=== PATIENT | male | born 1955 | race Hispanic/Latino ===

== ENCOUNTER 2016-11-15 20:59 | Inpatient (IN) | payer MEDICAID ==
--- NOTE | 2016-11-15 21:21 | C.PDOC ---
History Of Present Illness Patient is a 61 year old male transferred from [facility] for inpatient psychiatric admission. Patient is bipolar and noncompliant with medications. Patient has no physical complaints at this time. Time Seen by Provider: 11/15/16 21:20 Chief Complaint (Nursing): Medical Clearance History Per: Other ([facility]) History/Exam Limitations: no limitations Current Symptoms Are (Timing): Still Present Severity: None Pain Scale Rating Of: 0 Past Medical History Vital Signs: Last Vital Signs Temp 97.8 F 11/15/16 21:04 Pulse 62 11/15/16 21:04 Resp 20 11/15/16 21:04 BP 129/70 11/15/16 21:04 Pulse Ox 97 11/15/16 21:48 - Medical History PMH: Anxiety, Bipolar Disorder, Depression, Hiatal Hernia (L RT ABD), HTN, Multiple Sclerosis, Pancreatitis Surgical History: No Surg Hx - [facility] Procedures ALCOHOL DETOXIFICATION (12/22/13) Family History: States: Unknown Family Hx - Social History Hx Tobacco Use: Yes Hx Alcohol Use: Yes Hx Substance Use: No - Immunization History Hx Tetanus Toxoid Vaccination: No Hx Influenza Vaccination: No Hx Pneumococcal Vaccination: No Review Of Systems Except As Marked, All Systems Reviewed And Found Negative. Physical Exam - Physical Exam Appears: Well, Non-toxic Skin: Normal Color, Warm, Dry Head: Atraumatic, Normacephalic Eye(s): bilateral: Normal Inspection, PERRL, EOMI Ear(s): Bilateral: Normal Oral Mucosa: Moist Chest: Symmetrical, No Tenderness Cardiovascular: Rhythm Regular, No Murmur Respiratory: Normal Breath Sounds, No Rales, No Rhonchi, No Wheezing Gastrointestinal/Abdominal: Soft, No Tenderness Neurological/Psych: Oriented x3, Normal Speech, Normal Cognition ED Course And Treatment O2 Sat by Pulse Oximetry: 97 (Room air) Pulse Ox Interpretation: Normal Progress Note: Sceening workup evaluation has been reviewed by me, Dr. Kingsley, and found to be acceptable. Case discussed with crisis. Medical Decision Making Medical Decision Making: transfer in for psych Bipolar Disposition Doctor Will See Patient In The: Hospital Counseled Patient/Family Regarding: Studies Performed, Diagnosis - Disposition Disposition: HOSPITALIZED Disposition Time: 21:51 Condition: GOOD - Clinical Impression Clinical Impression: Bipolar 1 disorder - Scribe Statement The provider has reviewed the documentation as recorded by the Scribe Jagjit Jaimes All medical record entries made by the Arline were at my direction and personally dictated by me. I have reviewed the chart and agree that the record accurately reflects my personal performance of the history, physical exam, medical decision making, and the department course for this patient. I have also personally directed, reviewed, and agree with the discharge instructions and disposition.
[2016-11-16 07:36] VITALS: O2SAT 99
--- NOTE | 2016-11-16 09:35 | PCM.PSYCH ---
Initial Psychiatric Evaluation - Initial Psychiatric Evaluation Type of Admission: Voluntary Legal Status: Capacity Chief Complaint (in patient's own words): "I was feeling depressed and suicidal " History of Present Illness and Precipitating Events: Pt is a 61 year old male. He is with two children ages 38 and 36. He does not speak to his family. 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 Patient lives by himself. Patient was transferred from [place]. He came to the ER because he was feeling suicidal with a plan to jump off a bridge. Patient says he was feeling suicidal on and off since one week ago when he went to his ex-'s home and no one answered. Patient has a history of alcohol abuse (quart of vodka a day) but says his last drink was on September 22. He is currently in a PACT program and attends AA meetings to maintain his sobriety. Patient smokes two packs of cigarettes a day. Patient says he has been diagnosed with bipolar, depression and anxiety. Patient has one prior suicide attempt by drinking too much in 2012. Patient reports he takes Buspar, Seroquel , Trazodone and Prozac. Patient says he is anxious and having racing thoughts. He says he goes through manic periods where he won't be able to stay still, can' t sleep, and he will spend money on anything. Patient denies any homicidal ideation. He also denies any auditory or visual hallucinations PMH: Pancreatitis 3x, MS, Hep C -treated. Fam Psych Hx: denies Current Medications: Active Medications Generic Name Dose Route Start Last Admin Trade Name Freq PRN Reason Stop Dose Admin Buspirone HCl 10 mg 11/16/16 10:00 Buspar PO BID EBENEZER Hydroxyzine HCl 50 mg 11/16/16 10:00 Atarax PO QID EBENEZER Ibuprofen 600 mg 11/16/16 01:23 Motrin Tab PO Q6H PRN Pain, moderate (4-7) Quetiapine Fumarate 100 mg 11/16/16 22:00 Seroquel PO HS EBENEZER Trazodone HCl 100 mg 11/16/16 01:18 Desyrel PO HS PRN Insomnia Past Psychiatric History - Past Psychiatric History Previous Treatment History: Inpatient Pertinent Medical Hx (Current Medical&Sleep Prob, Allergies): Allergies Allergy/AdvReac Type Severity Reaction Status Date / Time No Known Allergies Allergy Verified 11/15/16 21:11 traZODone [Desyrel] 200 mg PO HS 11/15/16 Review of Systems - Review of Systems All systems: reviewed and no additional remarkable complaints except - Psychiatric Psychiatric: Anxiety, Depression, Hopelessness, Irritability, Suicidal Ideation Mental Status Examination - Personal Presentation Personal Presentation: Looks stated age - Affect Affect: Constricted, Depressed - Motor Activity Motor Activity: Calm - Reliability in Providing Information Reliability in Providing Information: Good - Speech Speech: Organized - Mood Mood: Depressed, Anxious - Formal Thought Process Formal Thought Process: No Impairment - Obsessions/Compulsions Obsessions: No Compulsions: No - Cognitive Functions Orientation: Person, Place, Situation, Time Sensorium: Alert Attention/Concentration: Attentive Abstract Thinking: [place] Estimate of Intelligence: Below average Judgement: Imparied, as evidence by: Poor judgement, Imparied, as evidence by: Lack of insight into illness - Risk Risk: Suicidal, Diminished functioning - Strength & Assets Inventory Strength & Assets Inventory: Cooperative - Limitations Limitations: Living alone DSM 5 DX - DSM 5 DSM 5 Diagnosis: 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
--- NOTE | 2016-11-17 14:40 | PCM.PYCHPN ---
Psychiatric Progress Note - Psychiatric Progress Note Patient seen today, length of contact: 15 min Patient Chief Complaint: "Leave me alone" Problems Identified/Issues Discussed: The pt is seen, chart reviewed, case discussed with staff. The pt is compliant with medications despite remaining angry and reports no side -effects. Symptoms are not improving yet - angry, irate, uncooperative. Medication Change: No Medical Record Reviewed: Yes Mental Status Examination - Cognitive Function Orientation: Person, Place, Situation, Time Memory: Impaired Attention: Poor Concentration: Poor Association: WNL Fund of Knowledge: Poor - Mood Mood: Depressed, Anxious - Affect Affect: Constricted, Depressed - Speech Speech: Loud - Formal Thought Process Formal Thought Process: No Impairment - Suicidal Ideation Suicidal Ideation: No - Homicidal Ideation Homicidal Ideation: No Goal/Treatment Plan - Goal/Treatment Plan Need for Continued Stay: Discharge may exacerbated symptoms, Severe functional impairment Progress Toward Problem(s) and Goals/Treatment Plan: Continue medications Support and psychoeducation daily Attend groups and activities daily After care planning
--- NOTE | 2016-11-19 01:10 | PCM.PYCHPN ---
Psychiatric Progress Note - Psychiatric Progress Note Patient seen today, length of contact: 16 min Patient Chief Complaint: "I'm fine" Problems Identified/Issues Discussed: The pt is seen, chart reviewed, case discussed with staff. The pt is compliant with medications and reports no side-effects. Less irate, more cooperative today Support given Medication Change: No Medical Record Reviewed: Yes Mental Status Examination - Cognitive Function Orientation: Person, Place, Situation, Time Memory: Impaired Attention: Poor Concentration: Poor Association: WNL Fund of Knowledge: Poor - Mood Mood: Depressed, Anxious - Affect Affect: Constricted, Depressed - Speech Speech: Loud - Formal Thought Process Formal Thought Process: No Impairment - Suicidal Ideation Suicidal Ideation: No - Homicidal Ideation Homicidal Ideation: No Goal/Treatment Plan - Goal/Treatment Plan Need for Continued Stay: Discharge may exacerbated symptoms, Severe functional impairment Progress Toward Problem(s) and Goals/Treatment Plan: Continue medications, adjust doses Support and psychoeducation daily Attend groups and activities daily After care planning
--- NOTE | 2016-11-19 10:39 | PCM.PYCHPN ---
Psychiatric Progress Note - Psychiatric Progress Note Patient seen today, length of contact: 16 min Patient Chief Complaint: "I am bored" Problems Identified/Issues Discussed: Patient seen, chart reviewed, case discussed. Patient reports that he is feeling better. He says that he is less depressed. He slept well last night with medication. Patient reports that he is bored and it is hard to relate to other patients here. Patient denies any suicidal ideation. He says he is ready to go home, back to his PACT program and AA meetings which he goes to every day. Per morning meeting patient was cranky and irritable on Saturday but better on Saturday. Patient was calm, organized, and pleasant today. Support therapy and psychoeducation were given Medication Change: No Medical Record Reviewed: Yes Mental Status Examination - Cognitive Function Orientation: Person, Place, Situation, Time Memory: Intact Attention: WNL Concentration: WNL Association: WNL Fund of Knowledge: Poor - Mood Mood: Depressed, Anxious - Affect Affect: Constricted, Depressed - Speech Speech: Loud - Formal Thought Process Formal Thought Process: No Impairment - Suicidal Ideation Suicidal Ideation: No - Homicidal Ideation Homicidal Ideation: No Goal/Treatment Plan - Goal/Treatment Plan Need for Continued Stay: Discharge may exacerbated symptoms, Severe functional impairment Progress Toward Problem(s) and Goals/Treatment Plan: Major depressive disorder recurrent severe without psychotic features CBT Psychoeducation Supportive therapy, group therapy, individual therapy Buspar 10 mg PO BID Seroquel 100 mg by mouth HS Prozac 10 mg by mouth daily Trazodone 100 mg by mouth daily at bedtime Alcohol use disorder severe in early remission CBT Psychoeducation Supportive therapy, individual therapy Use [place] for abstinence - Smoking Cessation Smoking Cessation Initiated: No
[2016-11-20 07:47] VITALS: BP 146/82; PULSE 58; RESP 19; TEMP 97.4
--- NOTE | 2016-11-20 10:38 | PCM.PYCHDC ---
Mental Status Examination - Mental Status Examination Orientation: Person, Place, Situation, Time Memory: Intact Mood: Neutral Affect: Constricted Speech: Soft Attention: WNL Concentration: WNL Association: WNL Fund of Knowledge: WNL Formal Thought Process: No Impairment Description of patient's judgement and insight: good, fair Psychotic Thoughts and Behaviors: denies any AVH Suicidal Ideation: No Current Homicidal Ideation?: No Discharge Summary - Discharge Note Reason for Hospitalization: Pt is a 61 year old male. He is with two children ages 38 and 36. He does not speak to his family. 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 Patient lives by himself. Patient was transferred from [place]. He came to the ER because he was feeling suicidal with a plan to jump off a bridge. Patient says he was feeling suicidal on and off since one week ago when he went to his ex-'s home and no one answered. Patient has a history of alcohol abuse (quart of vodka a day) but says his last drink was on September 22. He is currently in a PACT program and attends AA meetings to maintain his sobriety. Patient smokes two packs of cigarettes a day. Patient says he has been diagnosed with bipolar, depression and anxiety. Patient has one prior suicide attempt by drinking too much in 2012. Patient reports he takes Buspar, Seroquel , Trazodone and Prozac. Patient says he is anxious and having racing thoughts. He says he goes through manic periods where he won't be able to stay still, can' t sleep, and he will spend money on anything. Patient denies any homicidal ideation. He also denies any auditory or visual hallucinations Consultations:: List each consultation separately and include: 1. Reason for request. 2. Findings. 3. Follow-up Summary of Hospital Course include:: 1. Description of specific treatment plan utilized for patients during their course of treatmen. 2. Summarize the time- course for resolution of acute symptoms and/or regressed behaviors. 3. Describe issues identified and worked on during hospitalization. 4. Describe medication utilized. 5. Describe medical problems identified and treated. 6. Reassessment of suicide risk Summary of Hospital Course: During the course of his stay, patient (pt) started progressively improving and he no longer remained irritable, depressed, and agitated. His mood was improved and he started attending groups and meetings and started socializing. Patient denied any feelings of hopelessness, helplessness, and worthlessness, denied any problem with the sleep or appetite, denied suicidal ideation or homicidal ideation. Pt denied any auditory or visual hallucinations. He reported improvement in the withdrawal symptoms Some changes were made in his current medications and patient was discharged on following medications. He tolerated these medications very well and denied any side effects. 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 Pt was educated and counseled about the risks of drinking and abusing drugs. Pt was educated and counseled to go to the ER or call 911 if pt develop suicidal ideation or homicidal ideation, worsening of symptoms or severe side effects of the meds. Prescriptions/Medication Reconciliation: busPIRone [Buspar] 10 mg PO BID #60 tab FLUoxetine [Prozac] 20 mg PO DAILY #30 cap QUEtiapine [SEROquel] 200 mg PO HS #30 tab traZODone [Desyrel] 100 mg PO HS #60 tab - Smoking Cessation Smoking Cessation Medication prescribed: No - Antipsychotic Medications Pt discharged on 2 or more routine antipsychotic medications: No
== END 2016-11-20 12:55 | disposition home or self-care (01) | DRG 430 ==
LOC: C.ER 20:59 → C.5E 21:20
PROVIDERS: ADMIT Psychiatry & Neurology Psychiatry; ATTEND Psychiatry & Neurology Psychiatry
PROC: GZ3ZZZZ Medication Management (ICD-10-PCS; principal; 2016-11-15)
PROC: HZ59ZZZ Individual Psychotherapy for Substance Abuse Treatment, Supportive (ICD-10-PCS; 2016-11-15)
PROC: GZHZZZZ Group Psychotherapy (ICD-10-PCS; 2016-11-15)
PROC: GZ56ZZZ Individual Psychotherapy, Supportive (ICD-10-PCS; 2016-11-15)
DX: F33.2 Major depressive disorder, recurrent severe without psychotic features (principal); F10.21 Alcohol dependence, in remission; G35 Multiple sclerosis; I10 Essential (primary) hypertension; Z86.19 Personal history of other infectious and parasitic diseases; Z91.14 Patient's other noncompliance with medication regimen